=== PATIENT | male | born 1970 | race Caucasian/White ===

== ENCOUNTER 2023-08-25 13:17 | Outpatient (CLI) | payer OTHER, SELFPAY ==
--- NOTE | 2023-08-25 13:38 | ECG_ITS ---
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
[2023-08-25 13:53] LABS: Hematocrit 52.3 % (42.0-52.0); Hemoglobin 16.4 g/dL (14.0-18.0)
[2023-08-25 14:06] LABS: Albumin Level 4.2 g/dL (3.5-5.1); Estimated Glomerular Filt Rate > 60
== END 2023-08-25 13:18 | disposition home or self-care (01) ==
LOC: ANHLAB 13:20
PROVIDERS: PCP Family Medicine; Visit Provider Orthopaedic Surgery
DX: M16.12 Unilateral primary osteoarthritis, left hip (principal); I44.4 Left anterior fascicular block
CPT/HCPCS: 36415; 82040; 82565; 85014; 85018; 93005

== ENCOUNTER 2023-08-31 07:54 | Outpatient (CLI) | payer OTHER, SELFPAY ==
[2023-08-31 09:42] LABS: Basophils Absolute Auto 0.1 K/mm3 (0.0-0.1); Basophils Percent Auto 0.5 % (0.2-1.2); Eosinophils Absolute Auto 0.5 K/mm3 (0-0.3); Eosinophils Percent Auto 2.8 % (0-4.4); Hematocrit 55.6 % (42.0-52.0); Hemoglobin 17.2 g/dL (14.0-18.0); Immature Granulocyte Absolute 0.15 K/mm3 (0.00-0.031); Immature Granulocyte Percent A 0.9 % (0-0.5); Mean Corpuscular HGB Conc 30.9 g/dl (32-36); Mean Corpuscular Hemoglobin 27.7 pg (26-34); Mean Corpuscular Volume 89.4 fl (80-100); Mean Platelet Volume 10.4 fl (7.4-10.4); Monocytes Absolute Auto 0.9 K/mm3 (0.1-0.6); Monocytes Percent Auto 5.5 % (2.6-8.5); Neutrophils Percent Auto 70.3 % (45.5-73.1); Platelet Count Result 273 k/mm3 (150-375); Red Blood Count 6.22 M/mm3 (4.6-6.20); Red Cell Distribution Width 14.5 % (11.5-14.5)
[2023-08-31 09:52] LABS: Glucose 155 mg/dL (65-110)
[2023-08-31 10:16] LABS: Urine Cotinine NEGATIVE
[2023-08-31 11:09] LABS: MRSA (PCR) NOT DETECTED (NOT DETECTE)
[2023-08-31 13:06] LABS: Hemoglobin A1C 8.6 % (<5.7)
== END 2023-08-31 07:55 | disposition home or self-care (01) ==
LOC: ANHSURGERY 07:58
PROVIDERS: PCP Family Medicine; Visit Provider Orthopaedic Surgery
DX: M16.12 Unilateral primary osteoarthritis, left hip (principal); Z01.818 Encounter for other preprocedural examination
CPT/HCPCS: 80307; 82947; 83036; 85025; 86850; 86900; 86901; 87641

== ENCOUNTER 2023-09-04 08:01 | Outpatient (CLI) | payer OTHER, SELFPAY ==
[2023-09-04 09:19] LABS: Basophils Absolute Auto 0.1 K/mm3 (0.0-0.1); Basophils Percent Auto 0.5 % (0.2-1.2); Eosinophils Absolute Auto 0.4 K/mm3 (0-0.3); Eosinophils Percent Auto 2.6 % (0-4.4); Hematocrit 55.5 % (42.0-52.0); Hemoglobin 17.5 g/dL (14.0-18.0); Immature Granulocyte Absolute 0.13 K/mm3 (0.00-0.031); Immature Granulocyte Percent A 0.8 % (0-0.5); Lymphocytes Absolute Auto 3.29 K/mm3 (0.9-3.2); Lymphocytes Percent Auto 20.2 % (18.3-44.2); Mean Corpuscular HGB Conc 31.5 g/dl (32-36); Mean Corpuscular Hemoglobin 27.9 pg (26-34); Mean Corpuscular Volume 88.4 fl (80-100); Mean Platelet Volume 10.5 fl (7.4-10.4); Monocytes Absolute Auto 0.9 K/mm3 (0.1-0.6); Monocytes Percent Auto 5.2 % (2.6-8.5); Neutrophils Absolute Auto 11.5 K/mm3 (1.3-6.7); Neutrophils Percent Auto 70.7 % (45.5-73.1); Platelet Count Result 267 k/mm3 (150-375); Red Blood Count 6.28 M/mm3 (4.6-6.20); Red Cell Distribution Width 14.7 % (11.5-14.5); White Blood Count 16.3 K/mm3 (4.5-10.0)
[2023-09-04 10:55] LABS: Anion Gap 8 mmol/L (8-16); Blood Urea Nitrogen 12 mg/dL (9-20); Calcium 9.1 mg/dL (8.4-10.2); Carbon Dioxide 30 mmol/L (22-30); Chloride 101 mmol/L (98-107); Estimated Glomerular Filt Rate > 60; Glucose 166 mg/dL (65-110); Potassium 4.1 mmol/L (3.4-5.0); Sodium 139 mmol/L (137-145)
== END 2023-09-04 08:02 | disposition home or self-care (01) ==
LOC: ANHLAB 08:03
PROVIDERS: PCP Family Medicine; Visit Provider Family Medicine
DX: I10 Essential (primary) hypertension (principal); Z12.5 Encounter for screening for malignant neoplasm of prostate; E11.65 Type 2 diabetes mellitus with hyperglycemia; D72.829 Elevated white blood cell count, unspecified
CPT/HCPCS: 36415; 80048; 82533; 84153; 84443; 85025; G0103

== ENCOUNTER 2023-11-17 10:30 | Outpatient (RCR) | payer OTHER, SELFPAY | END 2023-11-30 09:42 | disposition home or self-care (01) | LOC: ANHDMC 10:30 | PROVIDERS: PCP Family Medicine; Visit Provider Family Medicine | DX: E11.65 Type 2 diabetes mellitus with hyperglycemia (principal); Z71.89 Other specified counseling | CPT/HCPCS: G0108 ==

== ENCOUNTER 2024-02-09 15:30 | Outpatient (RCR) | payer OTHER, SELFPAY | END 2024-03-11 08:56 | disposition home or self-care (01) | LOC: ANHDMC 15:30 | PROVIDERS: PCP Family Medicine; Visit Provider Family Medicine | DX: E11.65 Type 2 diabetes mellitus with hyperglycemia (principal); Z71.89 Other specified counseling | CPT/HCPCS: G0108 ==

== ENCOUNTER 2024-05-11 08:19 | Outpatient (CLI) | payer OTHER, SELFPAY ==
[2024-05-11 09:05] LABS: Cholesterol 191 mg/dL (0-200); HDL Direct 38 mg/dL; Triglycerides 217 mg/dL (<150)
[2024-05-11 09:16] LABS: LDL Cholesterol Direct 95 mg/dL
[2024-05-11 11:37] LABS: Microalbumin Urine Random 176.5 mg/L (0-16.7)
[2024-05-11 11:39] LABS: MALB Creatinine Ratio 113.1 mg/g (0-30)
[2024-05-11 11:55] LABS: Hemoglobin A1C 6.1 % (<5.7)
== END 2024-05-11 08:20 | disposition home or self-care (01) ==
LOC: ANHLAB 08:22
PROVIDERS: PCP Family Medicine; Visit Provider Family Medicine
DX: E11.65 Type 2 diabetes mellitus with hyperglycemia (principal); Z13.220 Encounter for screening for lipoid disorders
CPT/HCPCS: 36415; 80061; 82043; 83036

== ENCOUNTER 2024-05-24 15:35 | Outpatient (RCR) | payer OTHER, SELFPAY | END 2024-08-15 13:19 | disposition home or self-care (01) | LOC: ANHDMC 15:35 | PROVIDERS: PCP Family Medicine; Visit Provider Family Medicine | DX: E11.65 Type 2 diabetes mellitus with hyperglycemia (principal); Z71.89 Other specified counseling | CPT/HCPCS: G0108 ==

== ENCOUNTER 2025-04-11 12:30 | Outpatient (RCR) | payer OTHER, SELFPAY ==
--- NOTE | 2025-02-15 17:30 | OPREHPOC ---
Outpatient Therapy Plan of Care This is a Multidisciplinary Plan of Care that may contain components documented by all disciplines (PT, OT, and ST.) PT Problem 1 PT Problem #1 Knowledge Deficit PT Goal 1 Goal / Goal Update Patient to demonstrate independence with HEP for improved self-reliance of symptom management. Target Visit 4 PT Problem 2 PT Problem #2 Pain PT Goal 1 Goal / Goal Update 1. Patient to decrease subjective reports of pain to <5/10 for improved ADL tolerance. 2. Patient to report 50% improvement in quantity and quality of sleep due to L hip pain. 3. Pt will improve prolonged walking tolerance >= 10 minutes before requiring a seated rest break. Target Visit 8 PT Problem 3 PT Problem #3 Impaired Strength PT Goal 1 Goal / Goal Update Patient to demonstrate L hip strength >=4/5 for improved functional stability required for ADLs. Target Visit 8 PT Problem 4 PT Problem #4 Impaired Gait PT Goal 1 Goal / Goal Update Patient to improve gait mechanics and stair negotiation to mild Trendelenburg and increased terminal hip extension for improved community navigation. Target Visit 8
--- NOTE | 2025-02-15 17:31 | PTOPEVAL1 ---
Assessment and note entered by Anum Orta, PT Evaluation Information Assessment Status Evaluation ICD-10 Condition Codes (PT) Pain in left hip M25.552 Subjective Information Primary Complaint: L hip Pain History of current condition: Pt reports symptoms started over 1 year ago. 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 However, he was denies due to his blood pressure and diabetes. These are now controlled and he is wanting to do therapy before having surgery scheduled to see if he an push off surgery. 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 Sxs made worse with: prolonged walking and standing, stairs, squatting, turning Sxs improved with: icy/hot, massage, resting, elevation CLOF: good and bad days, instability of the L leg, difficulty and pain with floor transfers and LE dressing PLOF: no limitations Reported Pain Level Pain Score 4: Self Report Assessment PT Clinical Summary Pt is a 63 year old male who presents to physical therapy with a primary complaint of chronic L hip pain. Pt demonstrates L hip weakness, pain worse with prolonged weight bearing and standing, decreased mobility, abnormal posture, gait deficit , and decreased flexibility that limit their ability to perform ADLs. Pt will benefit from skilled physical therapy to address the above listed deficits and return to PLOF. HEP instructed and written handout provided, EX tolerated well with no adverse effects to note post-session. Pt was educated on importance of adherence to HEP. Pt was also educated on anatomy, prognosis, home modalities, and PT POC. Plan of Care Interventions Aquatic Therapy,Electrical Stimulation,Gait Training,Hot Pack/Cold Pack,Manual Therapy, Mechanical Traction,Neuro Re-education,Patient/ Caregiver Education,Therapeutic Activities, Therapeutic Exercise,Self-Care/Home Management, Ultrasound PT Services Indicated Yes Treatment Frequency and 1-2x/wk for 8 sessions Duration These treatments will address the objective and functional deficits as defined above. The patient will be advanced safely and appropriately in order for the patient to progress towards his/her prior level of function. Additional exercises will be introduced and as well as a comprehensive home exercise program upon discharge, if needed, ?to ensure carryover of functional gains achieved in the clinic. This treatment plan has been reviewed and agreement upon by the patient.
--- NOTE | 2025-03-22 09:07 | PCPTNOTE ---
pt called and canceled today's reevaluation due to having to work.
--- NOTE | 2025-04-11 13:32 | OPREHPOC ---
Outpatient Therapy Plan of Care This is a Multidisciplinary Plan of Care that may contain components documented by all disciplines (PT, OT, and ST.) PT Problem 1 PT Problem #1 Knowledge Deficit PT Goal 1 Goal / Goal Update Patient to demonstrate independence with HEP for improved self-reliance of symptom management. 04-11-25 d/c goal met Target Visit 4 Progress Met PT Problem 2 PT Problem #2 Pain PT Goal 1 Goal / Goal Update 1. Patient to decrease subjective reports of pain to <5/10 for improved ADL tolerance. 2. Patient to report 50% improvement in quantity and quality of sleep due to L hip pain. 3. Pt will improve prolonged walking tolerance >= 10 minutes before requiring a seated rest break. 04-11-25 d/c goals 2,3 met; #1 is 8/10 at worst Target Visit 8 Progress Partially Met PT Problem 3 PT Problem #3 Impaired Strength PT Goal 1 Goal / Goal Update Patient to demonstrate L hip strength >=4/5 for improved functional stability required for ADLs. 04-11-25 d/c goal met Target Visit 8 Progress Met PT Problem 4 PT Problem #4 Impaired Gait PT Goal 1 Goal / Goal Update Patient to improve gait mechanics and stair negotiation to mild Trendelenburg and increased terminal hip extension for improved community navigation. 04-11-25 d/c goal met Target Visit 8 Progress Met
--- NOTE | 2025-04-11 13:32 | PTOPDC ---
Assessment and note entered by Patt Pettit, PT Assessment Status Discharge ICD-10 Condition Codes (PT) Pain in left hip M25.552 Subjective Information hip is better; have been doing the exercises; trying to walk better and use the correct pattern; know I will eventually have the THR, but want to wait as long as I can before having surgery; ready to finish therapy for now. Reported Pain Level Pain Score Self Report Additional Pain Score Comments pain range in the past week: 0-8/10; intermittent pain; up to 8/10- quick, sharp pain when move wrong, not very often and does not last; increase pain: walking 30 minutes on level surfaces; sleeping does not normally awaken him from sleeping; decrease pain: sit, rest, stretch hip, change positions Assessment PT Clinical Summary Robinson has received a total of 8 PT sessions. Compared to initial evaluation: pain rating is the same at 0-8/10, and improved with reports of: sharp pain less duration; increase standing and walking tolerance to 30 minutes and is able to sleep through the night without awakening due to hip pain; increase strength of hip and education for HEP and gait pattern, pain management techniques. The goals were achieved, except pain rating at worst. Discharge PT. He is to continue with the HEP and monitor activity level, balance of activity and rest. Plan of Care PT Services Indicated no
== END 2025-04-11 15:29 | disposition home or self-care (01) ==
LOC: ANHPT 12:30
PROVIDERS: PCP Family Medicine; Visit Provider Family Medicine
DX: M16.12 Unilateral primary osteoarthritis, left hip (principal)
CPT/HCPCS: 97110; 97116; 97140; 97161; 97530

== ENCOUNTER 2025-05-18 09:18 | Outpatient (CLI) | payer OTHER, SELFPAY ==
[2025-05-18 09:45] LABS: Hematocrit 51.8 % (42.0-52.0); Hemoglobin 16.6 g/dL (14.0-18.0); Mean Corpuscular HGB Conc 32.0 g/dl (32-36); Mean Corpuscular Hemoglobin 27.7 pg (26-34); Mean Corpuscular Volume 86.5 fl (80-100); Platelet Count Result 277 k/mm3 (150-375); Red Blood Count 5.99 M/mm3 (4.6-6.20); White Blood Count 14.2 K/mm3 (4.5-10.0)
[2025-05-18 10:04] LABS: Alanine Aminotransferase 25 U/L (6-50); Albumin Level 4.5 g/dL (3.5-5.1); Alkaline Phosphatase 57 U/L (38-126); Anion Gap 7 mmol/L (4-12); Aspartate Amino Transferase 26 U/L (17-59); Bilirubin,Total 0.8 mg/dL (0.2-1.3); Blood Urea Nitrogen 13 mg/dL (9-20); Calcium 8.6 mg/dL (8.4-10.2); Carbon Dioxide 28 mmol/L (22-30); Chloride 103 mmol/L (98-107); Cholesterol 196 mg/dL (0-200); Estimated Glomerular Filt Rate > 60; Glucose 93 mg/dL (65-110); HDL Direct 39 mg/dL; Potassium 4.4 mmol/L (3.4-5.0); Sodium 138 mmol/L (137-145); Total Protein 7.5 g/dL (6.3-8.2); Triglycerides 160 mg/dL (<150)
[2025-05-18 10:27] LABS: Hemoglobin A1C 5.9 % (<5.7)
[2025-05-18 10:33] LABS: MALB Creatinine Ratio 113.9 mg/g (0-30)
[2025-05-18 10:39] LABS: Prostate Specific Antigen 2.4 ng/mL (< OR = 4.0); Thyroid Stimulating Hormone 1.190 uIU/mL (0.465-4.680)
== END 2025-05-18 09:19 | disposition home or self-care (01) ==
LOC: ANHLAB 09:20
PROVIDERS: PCP Family Medicine; Visit Provider Family Medicine
DX: E11.29 Type 2 diabetes mellitus with other diabetic kidney complication (principal); R80.9 Proteinuria, unspecified; I10 Essential (primary) hypertension; Z13.220 Encounter for screening for lipoid disorders; Z12.5 Encounter for screening for malignant neoplasm of prostate
CPT/HCPCS: 36415; 80048; 80061; 80076; 82043; 83036; 84153; 84443; 85027; G0103